=== PATIENT | female | born 1970 | race Caucasian/White ===

== ENCOUNTER 2021-09-13 10:18 | Emergency (ER) | payer OTHER, SELFPAY ==
[2021-09-13] MEDS ORDERED: Fluorescein Opthalmic Strip ONE (12:00)
== END 2021-09-13 12:53 | disposition home or self-care (01) ==
LOC: CSHERS 10:18
DX: Z77.098 Contact with and (suspected) exposure to other hazardous, chiefly nonmedicinal, chemicals (principal); H57.89 Other specified disorders of eye and adnexa
CPT/HCPCS: 99283

== ENCOUNTER 2021-09-15 09:26 | Emergency (ER) | payer SELFPAY, OTHER ==
[2021-09-15] MEDS ORDERED: Fluorescein Opthalmic Strip ONE (10:20)
[2021-09-15] MEDS ORDERED: Tetracaine 0.5% PF 4 ML BOT ONE (10:20)
== END 2021-09-15 12:37 | disposition home or self-care (01) ==
LOC: CSHERS 09:26
DX: H10.213 Acute toxic conjunctivitis, bilateral (principal)
CPT/HCPCS: 99283